=== PATIENT | female | born 1985 | race Caucasian/White ===

== ENCOUNTER → 2018-06-01 | Outpatient (CLI) | payer BC ==
--- NOTE | 2018-06-07 12:34 | MR ---
EXAMINATION TYPE: MR foot RT wo con DATE OF EXAM: 06/01/2018 COMPARISON: Outside right foot and ankle x-ray October 05, 2017. Outside CT right ankle May 26, 2016. HISTORY: Right foot pain, injury, forefoot and mid foot pain 5th MT base pain Standard multiplanar, multisequence MRI departmental protocol Multiplanar, multisequence images of the right foot were acquired. FINDINGS: Bone marrow signal intensity is maintained throughout the right foot. No suspicious edema i s present. No acute displaced fracture is seen. Forefoot and midfoot articulations are maintained. Li sfranc joints are intact. Flexion in the toes is noted. No significant soft tissue swelling is seen. No worrisome focal fluid collection is noted. No suspici ous solid or cystic subcutaneous mass is present. Base of fifth metatarsal is unremarkable. PB tendon is intact. IMPRESSION: No significant finding is seen to account for patient's symptoms.
== END | disposition home or self-care (01) ==
LOC: RADMRIMAIN 07:14
PROVIDERS: ATTEND Podiatrist Foot & Ankle Surgery
DX: M79.671 Pain in right foot (principal)